=== PATIENT | female | born 1990 | race Caucasian/White ===

== ENCOUNTER 2017-02-28 18:03 | Emergency (ER) | payer OTHER ==
[2017-02-28] MEDS ORDERED: Sodium Chloride 0.9% 2.5 ML Syringe FLUSH PRN (18:38)
[2017-02-28] MEDS ORDERED: Sodium Chloride 0.9% 10 ML Syringe FLUSH PRN (18:38)
--- NOTE | 2017-02-28 18:44 | EDM.PDOC ---
<Yarelis Riley - Last Filed: 02/28/17 18:45> ED HPI GENERAL MEDICAL PROBLEM - General Chief Complaint: Abdominal Pain Stated Complaint: ABDOMINAL PAIN Time Seen by Provider: 02/28/17 18:29 - History of Present Illness INITIAL COMMENTS - FREE TEXT/NARRATIVE: HISTORY AND PHYSICAL: History of present illness: The patient is a healthy 26-year-old female with no GI or history and no abdominal surgical history who presents with 4 months of episodic abdominal pain. She says that for the last 4 months she has had one episode every month lasting about 12 hours of diffuse abdominal pain associated with nausea and some loose stools and it would resolve spontaneously. It was not necessarily associated with any foods or any time of the month. She says it was never localize right or left upper or lower. She says that over the last 3 weeks she' s been having more of right upper abdominal/mid abdominal pain that is occurring after she eats. She says initially it was with more with greasy foods and spicy foods but now she says every time she eats she gets the discomfort which she describes as a dull achy bloated feeling. She does feel bloated overall she's not had any diarrhea or vomiting. She says that sometimes she feels that if she could just vomit she would feel better but she does not vomit. She has not had fever chills chest pain or shortness of breath and no upper respiratory symptoms. She has no flank pain no urinary complaints. The patient says that her last period was 3 weeks ago and she took a home test that was negative. The patient has not seen her provider or taking much [id number] other than ibuprofen for this discomfort. The patient states she does not get any pain when she drinks fluids only with foods. She has not tried any moxo-enl-cyhjcmd antacids. She has no black or bloody stools. The patient states that she last ate about 1 hour ago at [facility] and she says that she came here because she wants to make sure that "nothing is bad" Review of systems: As per history of present illness and below otherwise all systems reviewed and negative. Past medical history: As per history of present illness and as reviewed below otherwise noncontributory. Surgical history: As per history of present illness and as reviewed below otherwise noncontributory. Social history: No reported history of drug or alcohol abuse. Family history: As per history of present illness and as reviewed below otherwise noncontributory. Physical exam: Gen.: Well-developed well-nourished female who is nontoxic and moves easily in the ED. HEENT: Atraumatic, normocephalic, negative for conjunctival pallor or scleral icterus, mucous membranes moist, throat clear, neck supple, nontender, trachea midline. Lungs: Clear to auscultation, breath sounds equal bilaterally, chest nontender. Heart: S1S2, regular, negative for clicks, rubs, or JVD. Abdomen: Soft, nondistended, nontender on my evaluation on deep palpation. There is no tympany on percussion and bowel sounds are slightly hypoactive. There is no rebound or guarding.. Negative for masses or hepatosplenomegaly. Negative for costovertebral tenderness. Again the patient indicates the right upper abdomen underneath the ribs as the site of her discomfort although I am not able to elicit much on my evaluation. Pelvis: Stable nontender. Genitourinary: Deferred. Rectal: Deferred. Extremities: Atraumatic, negative for cords or calf pain. Neurovascular unremarkable. Neuro: Awake, alert, oriented. Cranial nerves II through XII unremarkable. Cerebellum unremarkable. Motor and sensory unremarkable throughout. Exam nonfocal. Diagnostics: CBC CMP amylase lipase UA UCG CT scan of the abdomen and pelvis I discussed with the patient that because she ate tacos one hour ago we would not be able to do an ultrasound Therapeutics: IV Pepcid Please note that I saw this patient at the very end of my shift and will endorse the case to Dr. Garcia at 1900 hrs. He will follow-up all testing results and disposition the patient appropriately. Impression: Episodic abdominal pain acute on chronic Definitive disposition and diagnosis as appropriate pending reevaluation and review of above. Middle Abdomen Pain Score (Numeric/FACES): 6 - Related Data Allergies Allergy/AdvReac Type Severity Reaction Status Date / Time No Known Allergies Allergy Verified 02/28/17 18:24 Home Meds: Home Meds . [No Known Home Meds] 02/28/17 [History] Past Medical History - Past Health History Medical/Surgical History: Denies Medical/Surgical History - Infectious Disease History Infectious Disease History: Reports: Chicken Pox Social & Family History - Tobacco Use Smoking Status *Q: Never Smoker Second Hand Smoke Exposure: No - Caffeine Use Caffeine Use: Reports: None - Recreational Drug Use Recreational Drug Use: No ED ROS GENERAL - Review of Systems Review Of Systems: ROS reveals no pertinent complaints other than HPI. ED EXAM, GENERAL - Physical Exam Exam: See Below (See dictation) Course - Vital Signs Last Recorded V/S: Last Vital Signs Temp 36.4 C 02/28/17 18:21 Pulse 84 02/28/17 18:21 Resp 12 02/28/17 18:21 BP 140/89 02/28/17 18:21 Pulse Ox 100 02/28/17 18:21 - Orders/Labs/Meds Orders: Active Orders 24 hr Category Date Time Status Abdomen Pelvis w Cont [CT] Stat Exams 02/28/17 18:39 Taken CULTURE URINE [RM] Stat Lab 02/28/17 20:03 Uncollected Sodium Chloride 0.9% [Saline Flush] Med 02/28/17 18:38 Active 10 ml FLUSH ASDIRECTED PRN Sodium Chloride 0.9% [Saline Flush] Med 02/28/17 18:38 Active 2.5 ml FLUSH ASDIRECTED PRN Saline Lock Insert [OM.PC] Stat Oth 02/28/17 18:38 Ordered Medication Orders Sodium Chloride (Saline Flush) 10 ml FLUSH ASDIRECTED PRN PRN Reason: Keep Vein Open Sodium Chloride (Saline Flush) 2.5 ml FLUSH ASDIRECTED PRN PRN Reason: Keep Vein Open Labs: Laboratory Tests 02/28/17 02/28/17 02/28/17 Range/Units 18:45 18:45 18:49 WBC 9.38 (4.0-11.0) K/uL RBC 4.06 L (4.30-5.90) M/uL Hgb 12.6 (12.0-16.0) g/dL Hct 37.7 (36.0-46.0) % MCV 92.9 (80.0-98.0) fL MCH 31.0 (27.0-32.0) pg MCHC 33.4 (31.0-37.0) g/dL RDW Std Deviation 42.7 (28.0-62.0) fl RDW Coeff of Gigi 13 (11.0-15.0) % Plt Count 322 (150-400) K/uL MPV 10.40 (7.40-12.00) fL Neut % (Auto) 43.0 L (48.0-80.0) % Lymph % (Auto) 48.0 H (16.0-40.0) % Rice % (Auto) 7.4 (0.0-15.0) % Eos % (Auto) 0.9 (0.0-7.0) % Baso % (Auto) 0.7 (0.0-1.5) % Neut # (Auto) 4.0 (1.4-5.7) K/uL Lymph # (Auto) 4.5 H (0.6-2.4) K/uL Rice # (Auto) 0.7 (0.0-0.8) K/uL Eos # (Auto) 0.1 (0.0-0.7) K/uL Baso # (Auto) 0.1 (0.0-0.1) K/uL Nucleated RBC % 0.0 /100WBC Nucleated RBCs # 0 K/uL Sodium 140 (136-146) mmol/L Potassium 3.9 (3.5-5.1) mmol/L Chloride 105 (98-110) mmol/L Carbon Dioxide 25 (21-31) mmol/L BUN 9 (6.0-23.0) mg/dL Creatinine 0.7 (0.6-1.5) mg/dL Est Cr Clr Drug Dosing 119.47 mL/min Estimated GFR (MDRD) > 60.0 ml/min Glucose 102 (60-110) mg/dL Calcium 9.4 (8.8-10.8) mg/dL Total Bilirubin 0.8 (0.1-1.5) mg/dL AST 21 (5-40) IU/L ALT 19 (8-54) IU/L Alkaline Phosphatase 93 (40-150) Total Protein 7.6 (6.0-8.0) g/dL Albumin 3.9 (3.5-5.0) g/dL Globulin 3.7 H (2.0-3.5) g/dL Albumin/Globulin Ratio 1.1 L (1.3-2.8) Amylase 66 (10-90) U/L Lipase 29 (7-80) U/L Urine Color Urine Appearance Urine pH (5.0-8.0) Ur Specific [place] (1.001-1.035) Urine Protein (NEGATIVE) mg/dL Urine Glucose (UA) (NEGATIVE) mg/dL Urine Ketones (NEGATIVE) mg/dL Urine Occult Blood (NEGATIVE) Urine Nitrite (NEGATIVE) Urine Bilirubin (NEGATIVE) Urine Urobilinogen (<2.0) EU/dL Ur Leukocyte Esterase (NEGATIVE) Urine RBC (0-2/HPF) Urine WBC (0-5/HPF) Ur Epithelial Cells (NONE-FEW) Amorphous Sediment (NEGATIVE) Urine Bacteria (NEGATIVE) Urine HCG, Qual NEGATIVE (NEGATIVE) 02/28/17 Range/Units 18:49 WBC (4.0-11.0) K/uL RBC (4.30-5.90) M/uL Hgb (12.0-16.0) g/dL Hct (36.0-46.0) % MCV (80.0-98.0) fL MCH (27.0-32.0) pg MCHC (31.0-37.0) g/dL RDW Std Deviation (28.0-62.0) fl RDW Coeff of Gigi (11.0-15.0) % Plt Count (150-400) K/uL MPV (7.40-12.00) fL Neut % (Auto) (48.0-80.0) % Lymph % (Auto) (16.0-40.0) % Rice % (Auto) (0.0-15.0) % Eos % (Auto) (0.0-7.0) % Baso % (Auto) (0.0-1.5) % Neut # (Auto) (1.4-5.7) K/uL Lymph # (Auto) (0.6-2.4) K/uL Rice # (Auto) (0.0-0.8) K/uL Eos # (Auto) (0.0-0.7) K/uL Baso # (Auto) (0.0-0.1) K/uL Nucleated RBC % /100WBC Nucleated RBCs # K/uL Sodium (136-146) mmol/L Potassium (3.5-5.1) mmol/L Chloride (98-110) mmol/L Carbon Dioxide (21-31) mmol/L BUN (6.0-23.0) mg/dL Creatinine (0.6-1.5) mg/dL Est Cr Clr Drug Dosing mL/min Estimated GFR (MDRD) ml/min Glucose (60-110) mg/dL Calcium (8.8-10.8) mg/dL Total Bilirubin (0.1-1.5) mg/dL AST (5-40) IU/L ALT (8-54) IU/L Alkaline Phosphatase (40-150) Total Protein (6.0-8.0) g/dL Albumin (3.5-5.0) g/dL Globulin (2.0-3.5) g/dL Albumin/Globulin Ratio (1.3-2.8) Amylase (10-90) U/L Lipase (7-80) U/L Urine Color YELLOW Urine Appearance CLEAR Urine pH 7.5 (5.0-8.0) Ur Specific [place] 1.015 (1.001-1.035) Urine Protein NEGATIVE (NEGATIVE) mg/dL Urine Glucose (UA) NEGATIVE (NEGATIVE) mg/dL Urine Ketones NEGATIVE (NEGATIVE) mg/dL Urine Occult Blood NEGATIVE (NEGATIVE) Urine Nitrite NEGATIVE (NEGATIVE) Urine Bilirubin NEGATIVE (NEGATIVE) Urine Urobilinogen 0.2 (<2.0) EU/dL Ur Leukocyte Esterase TRACE (NEGATIVE) Urine RBC 0-2 (0-2/HPF) Urine WBC 2-3 (0-5/HPF) Ur Epithelial Cells OCCASIONAL (NONE-FEW) Amorphous Sediment FEW (NEGATIVE) Urine Bacteria FEW (NEGATIVE) Urine HCG, Qual (NEGATIVE) Meds: Medications Generic Name Dose Route Start Last Admin Trade Name Freq PRN Reason Stop Dose Admin Sodium Chloride 10 ml 02/28/17 18:38 Saline Flush FLUSH ASDIRECTED PRN Keep Vein Open Sodium Chloride 2.5 ml 02/28/17 18:38 Saline Flush FLUSH ASDIRECTED PRN Keep Vein Open Departure - Departure Disposition: Home, Self-Care 01 Clinical Impression: Abdominal pain - Discharge Information Referrals: PCP,None [Primary Care Provider] - Forms: ED Department Discharge Additional Instructions: Bremer diet as discussed Return if symptoms persist or worsen or fever nausea vomiting chills sweats ER referral for general surgeon next week, consider HIDA scan testing [facility] - General Surgery Professional Building [address] [place] [address], [address] [place] [address] The following information is given to patients seen in the emergency department who are being discharged to home. This information is to outline your options for follow-up care. We provide all patients seen in our emergency department with a follow-up referral. The need for follow-up, as well as the timing and circumstances, are variable depending upon the specifics of your emergency department visit. If you don't have a primary care physician on staff, we will provide you with a referral. We always advise you to contact your personal physician following an emergency department visit to inform them of the circumstance of the visit and for follow-up with them and/or the need for any referrals to a consulting specialist. The emergency department will also refer you to a specialist when appropriate. This referral assures that you have the opportunity for follow-up care with a specialist. All of these measure are taken in an effort to provide you with optimal care, which includes your follow-up. Under all circumstances we always encourage you to contact your private physician who remains a resource for coordinating your care. When calling for follow-up care, please make the office aware that this follow-up is from your recent emergency room visit. If for any reason you are refused follow-up, please contact the [facility] emergency department at and asked to speak to the emergency department charge nurse. - My Orders Last 24 Hours: My Active Orders 02/28/17 20:03 CULTURE URINE [RM] Stat - Assessment/Plan Last 24 Hours: My Active Orders 02/28/17 20:03 CULTURE URINE [RM] Stat <Miguelangel Garcia - Last Filed: 02/28/17 20:18> ED HPI GENERAL MEDICAL PROBLEM - History of Present Illness INITIAL COMMENTS - FREE TEXT/NARRATIVE: Patient seen and examined agree with above, does seem that there is a former food association however with the discomfort. 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
[2017-02-28 19:13] LABS: CHLORIDE,CL 105 mmol/L (98-110); SODIUM,NA 140 mmol/L (136-146)
[2017-02-28 20:59] VITALS: BP 110/63
[2017-02-28] MEDS ORDERED: Iopamidol 755 MG/ML 500 ML Multipack Bottle IVPUSH ONE (23:15)
[2017-02-28] MEDS ORDERED: Iopamidol 755 MG/ML 500 ML Multipack Bottle IVPUSH STA (23:18)
--- NOTE | 2017-03-03 09:59 | CT ---
EXAM DATE: 02/28/17 PATIENT'S AGE: 26 Patient: OCTOBER FENG Facility: [place], [place] Site . Site : 1991 Study: CT Abdomen/Pelvis [id number] 7:50:05 PM Ordering Physician: Osvaldo Santoyo Final Report: INDICATION: RLQ ABD PAIN X 4 MONTHS, WORSENING CT ABDOMEN AND PELVIS WITH CONTRAST TECHNIQUE: Multidetector CT imaging was performed through the abdomen and pelvis following intravenous contrast administration. Coronal and sagittal reconstructions were generated. COMPARISON: None. FINDINGS: Included portions of the lower chest show the lung bases to be clear. The liver, spleen, gallbladder, pancreas, adrenals, and kidneys show no significant findings. Bowel loops are of normal caliber and demonstrate no wall thickening. The appendix is normal. No free fluid or free air is identified. The abdominal aorta appears normal. No abnormally enlarged lymph nodes are seen. The urinary bladder, uterus, and adnexal regions are within normal limits. Visualized bones show no significant findings. IMPRESSION: No acute abnormality identified. No cause for the patient`s symptoms is evident. SAM MCCOLLUM MD [employer] Dictated by: Francis Mccollum MD @ 02/28/2017 19:57:22 (Electronic Signature) Report Signed by Proxy. [facility]
== END 2017-02-28 20:29 | disposition home or self-care (01) ==
LOC: MW.ED 18:03
DX: R10.11 Right upper quadrant pain (principal)
CPT/HCPCS: 36415; 74177; 74177-26; 80053; 81001; 81025; 82150; 83690; 85025; 99283; 99284-25

== ENCOUNTER 2019-04-13 19:42 | Emergency (ER) | payer BC, OTHER ==
[2019-04-13 19:51] VITALS: BP 134/82; PULSE 69
--- NOTE | 2019-04-13 20:04 | EDM.PDOC ---
ED HPI GENERAL MEDICAL PROBLEM - General Chief Complaint: Lower Extremity Injury/Pain Stated Complaint: RIGHT KNEE Time Seen by Provider: 04/13/19 19:45 Source of Information: Reports: Patient History Limitations: Reports: No Limitations - History of Present Illness INITIAL COMMENTS - FREE TEXT/NARRATIVE: HISTORY AND PHYSICAL: History of present illness: Disposition is a 29-year-old female who presents to the ED today with concern of right knee pain 3 weeks. Patient states she is a frequent runner and runs multiple miles every day and started noticing a few weeks ago that her right knee was getting more swollen and painful partially when running. Patient denies any direct trauma or injury to the knee. Patient denies any prior injury to the knee. Patient denies any other symptoms or concerns. Patient denies fever, chills, chest pain, shortness of breath, or cough. Denies headache, neck stiff ness, change in vision, syncope, or near syncope. Denies nausea, vomiting, abdominal pain, diarrhea, constipation, or dysuria. Has not noted any blood in urine or stool. Patient has been eating and drinking appropriately. Review of systems: As per history of present illness and below otherwise all systems reviewed and negative. Past medical history: As per history of present illness and as reviewed below otherwise noncontributory. Surgical history: As per history of present illness and as reviewed below otherwise noncontributory. Social history: See social history for further information Family history: As per history of present illness and as reviewed below otherwise noncontributory. Physical exam: General: Patient is alert, oriented, and in no acute distress. Patient sitting comfortably on exam table. HEENT: Atraumatic, normocephalic, pupils equal and reactive bilaterally, negative for conjunctival pallor or scleral icterus, mucous membranes moist, TMs normal bilaterally, throat clear, neck supple, nontender, trachea midline. No drooling or trismus noted. No meningeal signs. No hot potato voice noted. Lungs: Clear to auscultation, breath sounds equal bilaterally, chest nontender. Heart: S1S2, regular rate and rhythm without overt murmur Abdomen: Soft, nondistended, nontender. Negative for masses or hepatosplenomegaly. Negative for costovertebral tenderness. Pelvis: Stable nontender. Genitourinary: Deferred. Rectal: Deferred. Skin: Intact, warm, dry. No lesions or rashes noted. Extremities: Atraumatic, negative for cords or calf pain. Neurovascular unremarkable. There is a mild amount of edema on the medial side of the knee without erythema or warmth to the touch. Patient has full range of motion of complete bilateral lower extremities without pain or difficulty. Dorsalis pedis and posterior tibial pulses are grossly intact bilaterally with capillary refill less than 2 seconds. Neuro: Awake, alert, oriented. Cranial nerves II through XII unremarkable. Cerebellum unremarkable. Motor and sensory unremarkable throughout. Exam nonfocal. Notes: Dr. Mccormack directly involved in patient care. Discussed the importance for follow-up with an orthopedic provider. Voices understanding and is agreeable to plan of care. Denies any further questions or concerns at this time. Diagnostics: Knee x-ray Therapeutics: Knee sleeve Prescription: None Impression: Pre-patellar bursitis, right Plan: 1. Rest, ice, elevate the affected extremity. You can apply ice 15 minutes on, 15 minutes off. 2. Tylenol as directed for pain management or discomfort. Take medication as prescribed. 3. Follow up with the Orthopedic provider as discussed. Return to the ED as needed and as discussed. Definitive disposition and diagnosis as appropriate pending reevaluation and review of above. right knee Pain Score (Numeric/FACES): 4 - Related Data Allergies Allergy/AdvReac Type Severity Reaction Status Date / Time No Known Allergies Allergy Verified 04/13/19 19:50 Home Meds: Home Meds Control. 04/08/17 [History] Diclofenac Sodium [Voltaren] 75 mg PO BIDMEALS PRN #15 tab.cr 04/13/19 [Rx] Past Medical History - Past Health History Medical/Surgical History: Denies Medical/Surgical History Psychiatric History: Reports: Anxiety - Infectious Disease History Infectious Disease History: Reports: Chicken Pox Social & Family History - Family History Family Medical History: Noncontributory - Tobacco Use Smoking Status *Q: Never Smoker - Caffeine Use Caffeine Use: Reports: None - Recreational Drug Use Recreational Drug Use: No Review of Systems - Review of Systems Review Of Systems: Comprehensive ROS is negative, except as noted in HPI. ED EXAM, GENERAL - Physical Exam Exam: See Below (see dictation) Course - Vital Signs Last Recorded V/S: Last Vital Signs Temp 96.7 F 04/13/19 19:46 Pulse 69 04/13/19 19:46 Resp 14 04/13/19 19:46 BP 134/82 04/13/19 19:46 Pulse Ox - Orders/Labs/Meds Orders: Active Orders 24 hr Category Date Time Status Communication Order [RC] STAT Care 04/13/19 20:05 Active DME for Discharge [COMM] Stat Oth 04/13/19 19:58 Ordered Departure - Departure Time of Disposition: 20:44 Disposition: Home, Self-Care 01 Clinical Impression: Prepatellar bursitis Qualifiers: Laterality: right Qualified Code(s): M70.41 - Prepatellar bursitis, right knee - Discharge Information Prescriptions: Diclofenac Sodium [Voltaren] 75 mg PO BIDMEALS PRN #15 tab.cr PRN Reason: Pain Referrals: PCP,None [Primary Care Provider] - Forms: ED Department Discharge Additional Instructions: The following information is given to patients seen in the emergency department who are being discharged to home. This information is to outline your options for follow-up care. We provide all patients seen in our emergency department with a follow-up referral. The need for follow-up, as well as the timing and circumstances, are variable depending upon the specifics of your emergency department visit. If you don't have a primary care physician on staff, we will provide you with a referral. We always advise you to contact your personal physician following an emergency department visit to inform them of the circumstance of the visit and for follow-up with them and/or the need for any referrals to a consulting specialist. The emergency department will also refer you to a specialist when appropriate. This referral assures that you have the opportunity for follow-up care with a specialist. All of these measure are taken in an effort to provide you with optimal care, which includes your follow-up. Under all circumstances we always encourage you to contact your private physician who remains a resource for coordinating your care. When calling for follow-up care, please make the office aware that this follow-up is from your recent emergency room visit. If for any reason you are refused follow-up, please contact the [facility] Emergency Department at and asked to speak to the emergency department charge nurse. [facility] Primary Care [address] [place] [address] [facility] [address] [place] [address] [facility] - Orthopedic Clinic Professional Building [address] [facility] [place] [address] [address] Galeano, Orthopedist [facility] [address] [place] [address] Dr Coyle - Dr Méndez - Dr Michael [facility] at [facility] [address] [place] [address] [facility] [address] [place] [address] 1. Rest, ice, elevate the affected extremity. You can apply ice 15 minutes on, 15 minutes off. 2. Tylenol as directed for pain management or discomfort. Take medication as prescribed. 3. Follow up with the Orthopedic provider as discussed. Return to the ED as needed and as discussed. - My Orders Last 24 Hours: My Active Orders 04/13/19 19:58 DME for Discharge [COMM] Stat 04/13/19 20:05 Communication Order [RC] STAT - Assessment/Plan Last 24 Hours: My Active Orders 04/13/19 19:58 DME for Discharge [COMM] Stat 04/13/19 20:05 Communication Order [RC] STAT
--- NOTE | 2019-04-13 20:41 | CR ---
INDICATION: Pain after running TECHNIQUE: Three views right knee COMPARISON: None FINDINGS: Bones: Alignment is normal. No fractures or bone lesions. Joint spaces: Unremarkable. Soft tissues: Soft tissue edema anterior to the patella.. IMPRESSION: Soft tissue edema anterior to the patella. Dictated by John Ribera MD @ 04/13/2019 8:39:07 PM Dictated by: John Ribera MD @ 04/13/2019 20:39:13 (Electronically Signed)
== END 2019-04-13 21:06 | disposition home or self-care (01) ==
LOC: MW.ED 19:42
DX: M70.41 Prepatellar bursitis, right knee (principal); Y93.02 Activity, running
CPT/HCPCS: 73562-26-RT; 73562-RT; 99283-25

== ENCOUNTER 2020-06-24 19:36 | Emergency (ER) | payer BC ==
--- NOTE | 2020-06-24 20:24 | EDM.PDOC ---
ED HPI GENERAL MEDICAL PROBLEM - General Chief Complaint: Genitourinary Problem Stated Complaint: POSSIBLE UTI /INFECTION Time Seen by Provider: 06/24/20 19:37 Source of Information: Reports: Patient History Limitations: Reports: No Limitations - History of Present Illness INITIAL COMMENTS - FREE TEXT/NARRATIVE: HISTORY AND PHYSICAL: History of present illness: Patient is a 30-year-old female who presents emergency room today with concern of possible urinary tract infection. Patient states that she took a urinary tract infection strep that was [id number] and it was positive for a urinary tract infection. Patient states that she has had burning with urination and urinary frequency over the past 2 to 3 days. Patient states that she has not taken anything for her symptoms. Patient denies any flank pain. Patient denies fever, chills, chest pain, shortness of breath, or cough. Denies headache, neck stiff ness, change in vision, syncope, or near syncope. Denies nausea, vomiting, abdominal pain, diarrhea, constipation. Has not noted any blood in urine or stool. Patient has been eating and drinking appropriately. Review of systems: As per history of present illness and below otherwise all systems reviewed and negative. Past medical history: As per history of present illness and as reviewed below otherwise noncontributory. Surgical history: As per history of present illness and as reviewed below otherwise noncontributory. Social history: See social history for further information Family history: As per history of present illness and as reviewed below otherwise noncontributory. Physical exam: General: Patient is alert, oriented, and in no acute distress. Patient sitting comfortably on exam table. Vitals stable and reviewed by me. HEENT: Atraumatic, normocephalic, pupils equal and reactive bilaterally, negative for conjunctival pallor or scleral icterus, mucous membranes moist, TMs normal bilaterally, throat clear, neck supple, nontender, trachea midline. No drooling or trismus noted. No meningeal signs. No hot potato voice noted. Lungs: Clear to auscultation, breath sounds equal bilaterally, chest nontender. Heart: S1S2, regular rate and rhythm without overt murmur Abdomen: Soft, nondistended, nontender. Negative for masses or hepatosplenomegaly. Negative for costovertebral tenderness. Pelvis: Stable nontender. Genitourinary: Deferred. Rectal: Deferred. Skin: Intact, warm, dry. No lesions or rashes noted. Extremities: Atraumatic, negative for cords or calf pain. Neurovascular unremarkable. Neuro: Awake, alert, oriented. Cranial nerves II through XII unremarkable. Cerebellum unremarkable. Motor and sensory unremarkable throughout. Exam nonfocal. Notes: Strict return precautions thoroughly discussed with patient. Discussed importance for follow-up with primary care provider. Voices understanding and is agreeable to plan of care. Denies any further questions or concerns at this time. Diagnostics: UA, urine hCG, urine culture Therapeutics: None Prescription: Bactrim DS, Pyridium Impression: Urinary tract infection Plan: 1. Take medication as prescribed. You can alternate ibuprofen and Tylenol as directed for pain and discomfort. 2. Follow-up with a primary care provider as discussed. Return to the ED as needed and as discussed. Definitive disposition and diagnosis as appropriate pending reevaluation and review of above. Left Flank Pain Score (Numeric/FACES): 5 - Related Data Allergies Allergy/AdvReac Type Severity Reaction Status Date / Time No Known Allergies Allergy Verified 06/24/20 20:00 Home Meds: Home Meds Control. 04/08/17 [History] Diclofenac Sodium [Voltaren] 75 mg PO BIDMEALS PRN #15 tab.cr 04/13/19 [Rx] Phenazopyridine HCl [Pyridium] 200 mg PO TID 2 Days #6 tablet 06/24/20 [Rx] Sulfamethoxazole/Trimethoprim [Bactrim Ds Tablet] 1 each PO BID 5 Days #10 tablet 06/24/20 [Rx] Past Medical History - Past Health History Medical/Surgical History: Denies Medical/Surgical History Psychiatric History: Reports: Anxiety - Infectious Disease History Infectious Disease History: Reports: Chicken Pox Social & Family History - Family History Family Medical History: No Pertinent Family History - Caffeine Use Caffeine Use: Reports: None ED ROS GENERAL - Review of Systems Review Of Systems: Comprehensive ROS is negative, except as noted in HPI. ED EXAM, GENERAL - Physical Exam Exam: See Below (see dictation) Course - Vital Signs Last Recorded V/S: Last Vital Signs Temp 99.1 F 06/24/20 19:57 Pulse 97 06/24/20 19:57 Resp 14 06/24/20 19:57 BP 125/72 06/24/20 19:57 Pulse Ox 99 06/24/20 19:57 - Orders/Labs/Meds Orders: Active Orders 24 hr Category Date Time Status CULTURE URINE [RM] Stat Lab 06/24/20 20:00 Received Labs: Laboratory Tests 06/24/20 06/24/20 Range/Units 20:00 20:00 Urine Color YELLOW Urine Appearance SLT CLOUDY Urine pH 6.0 (5.0-8.0) Ur Specific [place] 1.010 (1.001-1.035) Urine Protein NEGATIVE (NEGATIVE) mg/dL Urine Glucose (UA) NEGATIVE (NEGATIVE) mg/dL Urine Ketones NEGATIVE (NEGATIVE) mg/dL Urine Occult Blood NEGATIVE (NEGATIVE) Urine Nitrite NEGATIVE (NEGATIVE) Urine Bilirubin NEGATIVE (NEGATIVE) Urine Urobilinogen 0.2 (<2.0) EU/dL Ur Leukocyte Esterase SMALL H (NEGATIVE) Urine RBC 0-2 (0-2/HPF) Urine WBC 5-10 (0-5/HPF) Ur Epithelial Cells FEW (NONE-FEW) Urine Bacteria FEW (NEGATIVE) Urine HCG, Qual NEGATIVE (NEGATIVE) Departure - Departure Time of Disposition: 20:23 Disposition: Home, Self-Care 01 Clinical Impression: Urinary tract infection Qualifiers: Urinary tract infection type: acute cystitis Hematuria presence: without hematuria Qualified Code(s): N30.00 - Acute cystitis without hematuria - Discharge Information Prescriptions: Sulfamethoxazole/Trimethoprim [Bactrim Ds Tablet] 1 each PO BID 5 Days #10 tablet Phenazopyridine HCl [Pyridium] 200 mg PO TID 2 Days #6 tablet Instructions: Urinary Tract Infection, Adult, [id number] Referrals: PCP,None [Primary Care Provider] - Forms: ED Department Discharge Additional Instructions: The following information is given to patients seen in the emergency department who are being discharged to home. This information is to outline your options for follow-up care. We provide all patients seen in our emergency department with a follow-up referral. The need for follow-up, as well as the timing and circumstances, are variable depending upon the specifics of your emergency department visit. If you don't have a primary care physician on staff, we will provide you with a referral. We always advise you to contact your personal physician following an emergency department visit to inform them of the circumstance of the visit and for follow-up with them and/or the need for any referrals to a consulting specialist. The emergency department will also refer you to a specialist when appropriate. This referral assures that you have the opportunity for follow-up care with a specialist. All of these measure are taken in an effort to provide you with optimal care, which includes your follow-up. Under all circumstances we always encourage you to contact your private physician who remains a resource for coordinating your care. When calling for follow-up care, please make the office aware that this follow-up is from your recent emergency room visit. If for any reason you are refused follow-up, please contact the [facility] Emergency Department at and asked to speak to the emergency department charge nurse. [facility] [address] [place] [address] [facility] [address] [place] [id number] 1. Take medication as prescribed. You can alternate ibuprofen and Tylenol as directed for pain and discomfort. 2. Follow-up with a primary care provider as discussed. Return to the ED as needed and as discussed. Sepsis Event Note (ED) - Evaluation Sepsis Screening Result: No Definite Risk - Focused Exam Vital Signs: Vital Signs Temp Pulse Resp BP Pulse Ox 06/24/20 19:57 99.1 F 97 14 125/72 99 - My Orders Last 24 Hours: My Active Orders 06/24/20 20:00 CULTURE URINE [RM] Stat - Assessment/Plan Last 24 Hours: My Active Orders 06/24/20 20:00 CULTURE URINE [RM] Stat
[2020-06-24 22:48] VITALS: BP 113/71; PULSE 76
== END 2020-06-24 20:35 | disposition home or self-care (01) ==
LOC: MW.ED 19:36
DX: N30.00 Acute cystitis without hematuria (principal)
CPT/HCPCS: 81001; 81025; 87086; 99282; 99283

== ENCOUNTER 2020-07-22 15:36 | Emergency (ER) | payer BC ==
[2020-07-22 15:53] VITALS: BP 111/69; PULSE 74
--- NOTE | 2020-07-22 15:54 | EDM.PDOC ---
ED HPI GENERAL MEDICAL PROBLEM - General Chief Complaint: General Stated Complaint: POSSIBLE INFECTION Time Seen by Provider: 07/22/20 15:48 - History of Present Illness INITIAL COMMENTS - FREE TEXT/NARRATIVE: Otherwise well 30-year-old female no current meds or allergies who is presenting with 2 days of right areolar pain warmth and erythema consistent with prior episodes of mastitis. No fevers no chills no chest pain no shortness of breath. Symptoms without alleviating factors radiation or other associated symptoms. Right breast Pain Score (Numeric/FACES): 4 - Related Data Allergies Allergy/AdvReac Type Severity Reaction Status Date / Time No Known Allergies Allergy Verified 07/22/20 15:45 Home Meds: Home Meds cephALEXin [Keflex] 500 mg PO Q6HR 10 Days #40 cap 07/22/20 [Rx] Past Medical History - Past Health History Medical/Surgical History: Denies Medical/Surgical History [employer] History: Reports: Psychiatric History: Reports: Anxiety - Infectious Disease History Infectious Disease History: Reports: Chicken Pox Social & Family History - Family History Family Medical History: No Pertinent Family History - Caffeine Use Caffeine Use: Reports: None ED ROS GENERAL - Review of Systems Review Of Systems: See Below Free Text/Narrative/Comment: General: No fever. Skin: Per HPI Respiratory: No shortness of breath. Cardiac: No chest pain. Musculoskeletal: No myalgias/arthralgias. ED EXAM, GENERAL - Physical Exam Exam: See Below Free Text/Narrative:: General Appearance: No acute distress, appears comfortable Skin: Right areolar is tender and erythematous, no active drainage no palpable mass some very minimal erythema extends beyond areola Musculoskeletal: No edema or tenderness Neurologic: Awake, alert, no obvious deficits, moving all extremities Psychiatric: Appropriate, cooperative Course - Vital Signs Last Recorded V/S: Last Vital Signs Temp 98.5 F 07/22/20 15:47 Pulse 74 07/22/20 15:47 Resp 16 07/22/20 15:47 BP 111/69 07/22/20 15:47 Pulse Ox 99 07/22/20 15:47 Departure - Departure Time of Disposition: 15:51 Disposition: Home, Self-Care 01 Condition: Good Clinical Impression: Mastitis - Discharge Information *PRESCRIPTION DRUG MONITORING PROGRAM REVIEWED*: Not Applicable *COPY OF PRESCRIPTION DRUG MONITORING REPORT IN PATIENT CARMELO: Not Applicable Prescriptions: cephALEXin [Keflex] 500 mg PO Q6HR 10 Days #40 cap Instructions: Mastitis, and Mastitis Forms: ED Department Discharge Additional Instructions: Even if you feel better after a few days please be sure to complete the entire course of antibiotics. I encourage you to follow-up with the primary care clinic. [facility] [address] [place] [id number] [facility] [address] [place] [id number] The following information is given to patients seen in the emergency department who are being discharged to home. This information is to outline your options for follow-up care. We provide all patients seen in our emergency department with a follow-up referral. The need for follow-up, as well as the timing and circumstances, are variable depending upon the specifics of your emergency department visit. If you don't have a primary care physician on staff, we will provide you with a referral. We always advise you to contact your personal physician following an emergency department visit to inform them of the circumstance of the visit and for follow-up with them and/or the need for any referrals to a consulting specialist. The emergency department will also refer you to a specialist when appropriate. This referral assures that you have the opportunity for follow-up care with a specialist. All of these measure are taken in an effort to provide you with optimal care, which includes your follow-up. Under all circumstances we always encourage you to contact your private physician who remains a resource for coordinating your care. When calling for follow-up care, please make the office aware that this follow-up is from your recent emergency room visit. If for any reason you are refused follow-up, please contact the [facility] Emergency Department at and asked to speak to the emergency department charge nurse. Sepsis Event Note (ED) - Focused Exam Vital Signs: Vital Signs Temp Pulse Resp BP Pulse Ox 07/22/20 15:47 98.5 F 74 16 111/69 99 - Assessment/Plan Assessment:: Otherwise well 30-year-old female presenting with signs and symptoms most consistent with mastitis associated with breast-feeding. Patient without allergies and Keflex prescription sent to the pharmacy. Return precautions discussed and understood and primary care follow-up recommended. There is no finding on exam that would suggest abscess at this time but abscess return precautions were discussed and understood.
== END 2020-07-22 16:01 | disposition home or self-care (01) ==
LOC: MW.ED 15:36
DX: N61.0 Mastitis without abscess (principal)
CPT/HCPCS: 99282; 99283

== ENCOUNTER 2022-02-27 08:00 | Emergency (ER) | payer SELFPAY ==
[2022-02-27] MEDS ORDERED: Ondansetron 4 MG/2 ML SDV IVPUSH ONE (19:25)
[2022-02-27] MEDS ORDERED: Morphine 4 MG/ML Syringe IV ONE (19:25)
[2022-02-27] MEDS ORDERED: Ertapenem 1 GM Vial IV ONE (19:25)
[2022-02-27] MEDS ORDERED: Sodium Chloride 0.9% 1,000 ML IV ONE (19:25)
[2022-02-27] MEDS ORDERED: Iopamidol 755 Mg/ML 100 ML Bottle IV ONE (21:00)
== END 2022-02-27 23:20 | disposition home or self-care (01) ==
LOC: MW.ED 08:00
DX: K52.9 Noninfective gastroenteritis and colitis, unspecified (principal)
CPT/HCPCS: 74177; 96361; 96365; 96375; 99284; J1335; J2270; J2405; J7030; Q9967

== ENCOUNTER 2022-04-26 08:24 | Day surgery (SDC) | payer BC ==
[~2022-04-26 08:24] MED LIST: Lactated Ringers 1,000 ML IV SCH; Sodium Chloride 0.9% 10 ML Syringe FLUSH PRN; Sodium Chloride 0.9% 2.5 ML Syringe FLUSH PRN; Sodium Chloride 0.9% 20 ML SDV IV PRN
[2022-04-26] MEDS ORDERED: Propofol 200 MG/20 ML SDV ONE (10:02)
[2022-04-26] MEDS ORDERED: Lidocaine 2% 5 ML SDV ONE (10:02)
[2022-04-26 10:58] VITALS: BP 100/63; PULSE 54
== END 2022-04-26 11:10 | disposition home or self-care (01) ==
LOC: MW.SDS 08:24
PROVIDERS: ATTEND Surgery
DX: D12.3 Benign neoplasm of transverse colon (principal); F41.9 Anxiety disorder, unspecified; Z79.899 Other long term (current) drug therapy
CPT/HCPCS: 45380; 81025; J2704; J7120

== ENCOUNTER 2022-06-06 06:46 | Day surgery (SDC) | payer BC ==
[~2022-06-06 06:46] MED LIST changes: +ceFAZolin 1 GM in Premix Bag 1 BAG IV ONE
[2022-06-06] MEDS ORDERED: Scopolamine 1.5 MG Transdermal Patch TRDERM PRN (07:14)
[2022-06-06] MEDS ORDERED: Propofol 200 MG/20 ML SDV ONE ×2 (07:29→07:30)
[2022-06-06] MEDS ORDERED: fentaNYL 250 MCG/5 ML SDV ONE (07:29)
[2022-06-06] MEDS ORDERED: ePHEDrine 50 MG/ML SDV ONE (07:30)
[2022-06-06] MEDS ORDERED: Lidocaine 2% 5 ML SDV ONE (07:30)
[2022-06-06] MEDS ORDERED: Bupivacaine 0.25% 30 ML SDV ONE ×2 (07:30→07:50)
[2022-06-06] MEDS ORDERED: Ketorolac 30 MG/ML SDV ONE (07:30)
[2022-06-06] MEDS ORDERED: Glycopyrrolate 0.2 MG/ML SDV ONE (07:30)
[2022-06-06] MEDS ORDERED: Sugammadex Sodium 200 MG/2 ML VIAL ONE (07:30)
[2022-06-06] MEDS ORDERED: Dexamethasone 4 MG/ML 5 ML MDV ONE (07:30)
[2022-06-06] MEDS ORDERED: Dexmedetomidine 200 MCG/2 ML SDV ONE (07:30)
[2022-06-06] MEDS ORDERED: Ondansetron 4 MG/2 ML SDV ONE (07:30)
[2022-06-06] MEDS ORDERED: Bupivacaine 0.25% 10 ML SDV ONE (07:31)
[2022-06-06] MEDS ORDERED: Water For Injection, Sterile 20 ML ONE (07:33)
[2022-06-06] MEDS ORDERED: Albuterol 0.083% 2.5 MG/3 ML Neb Soln NEB PRN (07:40)
[2022-06-06] MEDS ORDERED: Ondansetron 4 MG/2 ML SDV IVPUSH PRN (07:40)
[2022-06-06] MEDS ORDERED: HYDROmorphone 1 MG/ML Syringe IVPUSH PRN (07:40)
[2022-06-06] MEDS ORDERED: Naloxone 0.4 MG/ML SDV IVPUSH PRN (07:40)
[2022-06-06] MEDS ORDERED: Metoclopramide 10 MG/2 ML SDV IVPUSH PRN (07:40)
[2022-06-06] MEDS ORDERED: Morphine 2 MG/ML SYRINGE IVPUSH PRN (07:40)
[2022-06-06] MEDS ORDERED: fentaNYL 50 MCG/ML SDV IVPUSH PRN (07:40)
[2022-06-06] MEDS ORDERED: Rocuronium Bromide 50 MG/5 ML Syringe ONE (07:46)
[2022-06-06] MEDS ORDERED: Magnesium Sulfate (4.06 MEQ/ML) 5 GM/10 ML SDV ONE (07:47)
[2022-06-06] MEDS ORDERED: Lidocaine 2% 11 ML Jelly Filled Syringe ONE (08:13)
[2022-06-06] MEDS ORDERED: Indocyanine Green 25 MG SDV ONE (09:04)
[2022-06-06 10:51] VITALS: BP 89/51
[2022-06-06 11:10] VITALS: PULSE 43
== END 2022-06-06 11:40 | disposition home or self-care (01) ==
LOC: MW.SDS 06:46
PROVIDERS: ATTEND Surgery
DX: K81.1 Chronic cholecystitis (principal); K35.80 Unspecified acute appendicitis; F41.9 Anxiety disorder, unspecified; Z79.899 Other long term (current) drug therapy
CPT/HCPCS: 44970; 47562; 81025; A9270; J0131; J1100; J1885; J2704; J3010; J3475; J3490; J7030; J7120; J2405

== ENCOUNTER 2024-05-21 13:58 | Inpatient (IN) | payer BC ==
[2024-05-21] MEDS ORDERED: Misoprostol 200 MCG Tab PO PRN (14:12)
[2024-05-21] MEDS ORDERED: Misoprostol 25 MCG (1/4 of 100 MCG) Tab VAG PRN ×2 (14:12)
[2024-05-21] MEDS ORDERED: Sodium Chloride 0.9% 10 ML Syringe FLUSH PRN (14:12)
[2024-05-21] MEDS ORDERED: Lidocaine 1% 50 ML MDV INJECT PRN (14:12)
[2024-05-21] MEDS ORDERED: Butorphanol 2 MG/ML SDV IVPUSH PRN (14:12)
[2024-05-21] MEDS ORDERED: Ondansetron 4 MG/2 ML SDV IVPUSH PRN (14:12)
[2024-05-21] MEDS ORDERED: Sodium Chloride 0.9% 20 ML SDV IV PRN (14:12)
[2024-05-21] MEDS ORDERED: Water For Irrigation,Sterile 1,000 ML Container IRR PRN (14:12)
[2024-05-21] MEDS ORDERED: Carboprost Tromethamine 250 MCG/1 mL Vial IM PRN (14:12)
[2024-05-21] MEDS ORDERED: Methylergonovine 0.2 MG/1 ML Amp IM PRN (14:12)
[2024-05-21] MEDS ORDERED: Tranexamic Acid in NACL,ISO-OS 1,000 MG in Premix Bag 1 BAG IV PRN (14:12)
[2024-05-21] MEDS ORDERED: Terbutaline 1 MG/ML SDV SUBCUT PRN (14:12)
[2024-05-21] MEDS ORDERED: Sodium Chloride 0.9% 2.5 ML Syringe FLUSH PRN (14:12)
[2024-05-21] MEDS ORDERED: Oxytocin/0.9 % Sodium Chloride 30 UNIT/500 ML BAG IV SCH (14:15)
[2024-05-21 14:51] LABS: HEMATOCRIT 33.7 % (37.0-47.0); HEMOGLOBIN 11.5 g/dL (12.0-16.0); MEAN CORPUSCULAR HEMOGLOBIN 31.6 pg (28.0-32.0); MEAN CORPUSCULAR HGB CONC 34.1 g/dL (32.0-36.0); MEAN CORPUSCULAR VOLUME 92.6 fL (83.0-99.0); MEAN PLATELET VOLUME 10.7 fL (9.4-12.3); PLATELET COUNT,PLT 231 K/uL (150-400); RED BLOOD CELL COUNT 3.64 M/uL (4.10-5.30); WHITE BLOOD CELL COUNT,WBC 10.21 K/uL (3.9-11.3)
[2024-05-21] MEDS: Oxytocin/0.9 % Sodium Chloride 30 UNIT/500 ML BAG IV SCH (14:54)
[2024-05-21] MEDS: Lactated Ringers 1,000 ML IV SCH (14:54)
[2024-05-21] MEDS ORDERED: ePHEDrine 50 MG/ML SDV IVPUSH PRN (16:28)
[2024-05-21] MEDS ORDERED: Phenylephrine HCl In 0.9% NaCl 1 MG/10 ML Syringe IVPUSH PRN (16:28)
[2024-05-21] MEDS ORDERED: dexmedeTOMIDine HCl 200 MCG/2 ML SDV EPIDUR SCH (16:30)
[2024-05-21] MEDS: Ropivacaine HCl/PF 400 MG in Premix Bag 1 BAG EPIDUR SCH (17:58)
[2024-05-21] MEDS ORDERED: oxyCODONE 5 MG Tab PO PRN (19:54)
[2024-05-21] MEDS ORDERED: Docusate Sodium 100 MG Cap PO PRN (19:54)
[2024-05-21] MEDS ORDERED: Lanolin 100% Cream 7 GM Tube TOP PRN (19:54)
[2024-05-21 20:40] LABS: PH,UMBILICAL ARTERIAL 7.281 (7.18-7.38); PH,UMBILICAL VENOUS 7.33 (7.25-7.45)
[2024-05-21] MEDS: Ibuprofen 800 MG Tab PO PRN (21:56)
[2024-05-21] MEDS: Witch Hazel Medicated Pads 40/Jar TOP PRN (21:56)
[2024-05-21] MEDS: Benzocaine/Menthol 20%-0.5% Spray 78 GM Cannister TOP PRN (21:57)
[2024-05-22 06:37] LABS: HEMATOCRIT 34.6 % (37.0-47.0); HEMOGLOBIN 11.4 g/dL (12.0-16.0)
[2024-05-22] MEDS: Acetaminophen 500 MG Tab PO PRN (08:08)
[2024-05-22 20:33] VITALS: BP 119/63; PULSE 78
== END 2024-05-22 21:53 | disposition home or self-care (01) | DRG 560 ==
LOC: MW.OBCHECK 13:58 → MW.OB 14:02 → MW.OBCHECK 14:12 → OBSVTOIN 19:38 → MW.OB 22:19
PROVIDERS: ADMIT Obstetrics & Gynecology; ATTEND Obstetrics & Gynecology
PROC: 10E0XZZ Delivery of Products of Conception, External Approach (ICD-10-PCS; principal; 2024-05-21)
PROC: 3E033VJ Introduction of Other Hormone into Peripheral Vein, Percutaneous Approach (ICD-10-PCS; 2024-05-21)
PROC: 3E0R3BZ Introduction of Anesthetic Agent into Spinal Canal, Percutaneous Approach (ICD-10-PCS; 2024-05-21)
PROC: 00HU33Z Insertion of Infusion Device into Spinal Canal, Percutaneous Approach (ICD-10-PCS; 2024-05-21)
DX: O99.02 Anemia complicating childbirth (principal); G71.00 Muscular dystrophy, unspecified; O75.89 Other specified complications of labor and delivery; Z3A.39 39 weeks gestation of pregnancy; Z37.0 Single live birth
CPT/HCPCS: 36415; 51702; 82803; 85014; 85018; 85027; 86592; 86850; 86900; 86901; A9270-GY; J2590; J2795; J7120